=== PATIENT | male | born 1980 | race Caucasian/White ===

== ENCOUNTER 2019-02-12 21:56 | Emergency (ER) | payer OTHER, MEDICAID, SELFPAY ==
[2019-02-12 22:04] VITALS: BP 150/87; PULSE 103; RESP 16; TEMP 36.2; O2SAT 99; BMI 22.2
--- NOTE | 2019-02-12 22:09 | ED.BACK ---
HPI - Back Pain/Injury General Chief Complaint: Back Pain/Injury Stated Complaint: lower back pain, x 2 days Time Seen by Provider: 02/12/19 22:02 Source: patient Mode of arrival: Ambulatory Limitations: no limitations History of Present Illness HPI Narrative: For evaluation of bilateral lower back pain. States has been going on for the past 2 days. No urinary or bowel issues. No radiation down into his legs. Does not know of a specific incident where this pain started however he did state that on the day that it started he did spend a number of hours in his car. Has tried some ibuprofen for symptoms prior to arrival. No prior back surgeries. No fevers. Related Data Previous Rx's Medication Instructions Recorded cyclobenzaprine 10 mg PO TID PRN #10 tab 02/12/19 Review of Systems Constitutional Constitutional: Denies fever(s) and Denies weakness ENT Ears, Nose, Mouth, and Throat: Denies disequilibrium Genitourinary Genitourinary: Denies dysuria, Denies urinary frequency and Denies urinary hesitancy Musculoskeletal Musculoskeletal: Reports back pain and Denies tingling Integumentary/Breasts Skin/Breast: Denies lesions and Denies rash Neurologic Neurologic: Denies radicular pain, Denies tingling, Denies paresthesias, Denies disequilibrium and Denies weakness Hematologic/Lymphatic Hematologic/Lymphatic: Denies easy bleeding and Denies easy bruising Patient History Medical History HIV (human immunodeficiency virus infection) (Acute) Social History lives independently: Yes Substance Use Type: methamphetamine Exam Initial Vital Signs Initial Vital Signs: Vital Signs Temperature 97.2 F L 02/12/19 22:04 Pulse Rate 103 H 02/12/19 22:04 Respiratory Rate 16 02/12/19 22:04 Blood Pressure 150/87 H 02/12/19 22:04 Pulse Oximetry 99 02/12/19 22:04 Const General: cooperative, comfortable and well developed Orientation: alert, awake and oriented x3 Resp Effort & Inspection: normal respiratory effort Cardio Rate: tachycardic Back/Spine/Pelvis Cervical Spine: No cervical spinal tenderness Thoracic/Lumbar Spine: paraspinal tenderness (Lumbar) and No thoracic spinal tenderness Skin Lesions: no lesions Rashes: no rashes Neuro General: alert and awake Extrem General: normal to inspection and capillary refill normal Psych Appearance: grossly normal Course Orders Ordered: Discontinued Medications Cyclobenzaprine HCl (Flexeril 10 Mg Prepack) 1 bottle MISC SEEINSTR ONE Stop: 02/12/19 22:10 Ketorolac Tromethamine (Toradol) 30 mg IM NOW ONE Stop: 02/12/19 22:10 Vital Signs Vital signs: Vital Signs - 8 hr 02/12/19 22:04 Temperature 97.2 F L Pulse Rate 103 H Respiratory Rate 16 Blood Pressure 150/87 H Pulse Oximetry 99 MDM - Back Pain/Injury MDM Narrative Medical decision making narrative: History and physical consistent with musculoskeletal low back pain. Was given Toradol here in the ER. Will send home with a prepack and a prescription for Flexeril. He was given care instructions and return precautions. Will hold on further workup for now. No trauma. Doubt fracture. Afebrile. Patient expressed understanding and agreement plan. Discharge Plan Departure Patient Disposition: Home Clinical Impression: Strain of lumbar region Qualifiers: Encounter type: initial encounter Qualified Code(s): S39.012A - Strain of muscle, fascia and tendon of lower back, initial encounter Instructions: DI for Low Back Pain Activity Restrictions/Additional Instructions: Recommend that you stay as active as possible. Light stretching is appropriate in this situation. Following up with your chiropractor was also appropriate. Take the medications as directed. Continue your other medications as directed. I do recommend that you start on a regular regiment of anti-inflammatories such as Motrin/ibuprofen. You can take 600 mg 3 times a day. Or if you prefer you can take a medications such as Naprosyn. This is 500 mg 2 times a day. I would recommend you start taking 1 of these medications on a daily basis until your symptoms improve. Contact your primary provider for follow-up. Prescriptions: New cyclobenzaprine 10 mg tablet 10 mg PO TID PRN (Reason: muscle spasm) Qty: 10 RF: 0
[2019-02-12] MEDS: KETOROLAC 60 MG/2 ML VIAL 30 MG IM (22:14)
[2019-02-12] MEDS: CYCLOBENZAPRINE 10 MG PREPACK 1 BOTTLE MISC (22:14)
== END 2019-02-12 22:31 | disposition home or self-care (01) ==
PROVIDERS: Emergency Provider Emergency Medicine
DX: S39.012A Strain of muscle, fascia and tendon of lower back, initial encounter (principal)
CPT/HCPCS: 96372; 99281; 99283; J1885

== ENCOUNTER 2019-03-10 12:00 | Emergency (ER) | payer OTHER, MEDICAID, SELFPAY ==
[2019-03-10 12:11] VITALS: BP 127/70; PULSE 87; RESP 16; TEMP 36.6; O2SAT 97; BMI 22.9
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
== END 2019-03-10 15:00 | disposition home or self-care (01) ==
PROVIDERS: Emergency Provider Internal Medicine
DX: T20.212A Burn of second degree of left ear [any part, except ear drum], initial encounter (principal); T23.252A Burn of second degree of left palm, initial encounter
CPT/HCPCS: 99281; 99282

== ENCOUNTER 2020-07-02 16:02 | Emergency (ER) | payer OTHER, MEDICAID, SELFPAY ==
[2020-07-02 16:10] VITALS: BP 143/82; PULSE 98; RESP 16; TEMP 36.5; O2SAT 98; BMI 24.3
[2020-07-02] MEDS: TET,DIPH,PERTUSS(ACELL),VAC/PF 0.5 ML SYRINGE IM (16:27)
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
== END 2020-07-02 17:48 | disposition home or self-care (01) ==
PROVIDERS: Emergency Provider Nurse Practitioner Family
DX: L03.116 Cellulitis of left lower limb (principal); Z23 Encounter for immunization
CPT/HCPCS: 90471; 99283; 90715

== ENCOUNTER 2020-10-26 11:13 | Emergency (ER) | payer OTHER, MEDICAID, SELFPAY ==
[2020-10-26 11:25] VITALS: BP 121/82; PULSE 118; RESP 13; TEMP 36.6; O2SAT 98; BMI 22.9
[2020-10-26 12:00] LABS: COVID19 -Nasal RAPID Negative (Negative)
--- NOTE | 2020-10-26 13:42 | ED_ITS ---
HPI - URI/Sore Throat General Chief Complaint: Upper Respiratory Symptoms Stated Complaint: Sore throat, sweats, body aches Time Seen by Provider: 10/26/20 13:37 Source: patient Mode of arrival: Ambulatory Limitations: no limitations History of Present Illness HPI Narrative: Patient is a 40-year-old male history of HIV presenting with sore throat ongoing for last 2 days. States that he has had sweats and chills. He has had 1 of 2 of put with vaccinations. No cough shortness of breath. HIV is well controlled he is followed closely at the [facility] viral loads are at zero. Related Data Previous Rx's Medication Instructions Recorded albuterol sulfate 90 mcg/actuation 2 puff INHALATION Q4-6H PRN #18 02/12/19 aerosol inhaler gram cyclobenzaprine 10 mg tablet 10 mg PO TID PRN #10 tab 02/12/19 silver sulfadiazine 1 % topical 1 applictn TOP BID #25 gram 03/10/19 cream doxycycline hyclate 100 mg capsule 100 mg PO BID #14 cap 07/02/20 amoxicillin 500 mg capsule 500 mg PO BID #20 cap 10/26/20 Allergies Allergy/AdvReac Type Severity Reaction Status Date / Time No Known Drug Allergies Allergy Verified 10/26/20 11:27 Review of Systems Review of Systems Narrative: GENERAL:+ fever,+ chills HEENT: See HPI RESPIRATORY: Denies dyspnea, cough, wheezing CARDIOVASCULAR: Denies chest pain, palpitations GASTROINTESTINAL: Denies nausea, vomiting MUSCULOSKELETAL: Denies extremity pain, injury SKIN: No rash, no laceration, no pruritus NEUROLOGIC: Denies weakness, dizziness, headache, numbness 8 point review of systems is negative except for those stated above and HPI Patient History Medical History HIV (human immunodeficiency virus infection) Surgical History No history of previous surgery Social History lives independently: Yes Smoking Status: Former smoker Smoking Status: Former smoker alcohol intake frequency: a few times a week Substance Use Type: methamphetamine Exam Initial Vital Signs Initial Vital Signs: Vital Signs Temperature 97.9 F 09/03/21 11:25 Pulse Rate 118 H 10/26/20 11:25 Respiratory Rate 13 10/26/20 11:25 Blood Pressure 121/82 10/26/20 11:25 Pulse Oximetry 98 10/26/20 11:25 GENERAL: Alert 60-year-old male appears to not feel well HEENT: Head atraumatic,EOMI, pupils reactive, face symmetric, moist mucous membranes PHARYNX: Erythematous no tonsillar exudate no uvula swelling or deviation CARDIOVASCULAR: Regular rate and rhythm without murmurs, rubs or gallops. RESPIRATORY: Breath sounds equal bilaterally, no wheezes rales or rhonchi. ABDOMEN: Soft, nontender. Normoactive bowel sounds all 4 quadrants. No guarding or rebound. EXTREMITIES: Normal range of motion, no clubbing or edema. Neurovascularly intact NEUROLOGICAL: Alert and oriented x4. SKIN: Warm, dry, no laceration, no petechiae, no rashes or lesions. Course Orders Ordered: ED Orders 10/26/20 11:32 COVID19 -Nasal swab/Pre-Proc Stat Discontinued Medications Ibuprofen (Ibuprofen 400 Mg Tablet) 400 mg PO NOW ONE Stop: 10/26/20 14:06 Last Admin: 10/26/20 14:11 Dose: 400 mg Documented by: ERMIAS Vital Signs Vital signs: Vital Signs - 8 hr 10/26/20 11:25 10/26/20 14:07 Temperature 97.9 F Pulse Rate 118 H 74 Respiratory Rate 13 18 Blood Pressure 121/82 110/71 Pulse Oximetry 98 97 MDM - URI/Sore Throat Lab Data Labs: Lab Results 10/26/20 Range/Units 11:32 SARS-CoV-2 (PCR) Negative (Negative) Point of Care Testing Rapid Strep A Positive [facility] Narrative Medical decision making narrative: Patient appears to not feel well but is hemodynamically stable. He is positive for strep negative for COVID. He is followed closely with Infectious Disease at [facility]. At this time he is given antibiotics for strep pharyngitis. Discharge Plan Departure Patient Disposition: Home Clinical Impression: Strep pharyngitis Instructions: DI for Strep Throat Activity Restrictions/Additional Instructions: *You have been diagnosed with strep pharyngitis *What to do: Increase fluid intake, recommend Gatorade or Gatorade like substance to help stay hydrated *Continue to take medications as directed Amoxicillin 500 mg twice a day for 10 days--> SENT TO [facility] Motrin 800 mg every 8 hours if needed for [id number] pain *Follow up with your primary care provider in 2-3 days *Return to ER if you should have increasing pain, difficulty swallowing any new, worsening or concerning symptoms Prescriptions: New amoxicillin 500 mg capsule 500 mg PO BID Qty: 20 RF: 0 No Action cyclobenzaprine 10 mg tablet 10 mg PO TID PRN (Reason: muscle spasm) Qty: 10 RF: 0 albuterol sulfate 90 mcg/actuation HFA aerosol inhaler 2 puff INHALATION Q4-6H PRN (Reason: shortness of breath or wheezing) Qty: 18 RF: 0 doxycycline hyclate 100 mg capsule 100 mg PO BID Qty: 14 RF: 0 silver sulfadiazine 1 % cream 1 applictn TOP BID Qty: 25 RF: 0
[2020-10-26 14:07] VITALS: BP 110/71; PULSE 74; RESP 18; O2SAT 97
[2020-10-26] MEDS: IBUPROFEN 400 MG TABLET PO (14:11)
== END 2020-10-26 14:13 | disposition home or self-care (01) ==
PROVIDERS: Emergency Provider Emergency Medicine
DX: J02.0 Streptococcal pharyngitis (principal); Z20.822 Contact with and (suspected) exposure to COVID-19
CPT/HCPCS: 87635; 87880; 99282; 99283; C9803